=== PATIENT | female | born 2000 | race Two or more races ===

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

== ENCOUNTER 2020-06-24 17:23 | Inpatient (IN) | payer MEDICAID ==
[~2020-06-24] VITALS: Ht 165.1 cm; Wt 60.8 kg
[2020-06-24] MEDS ORDERED: LORazepam 2MG/ML-1ML VIAL IV ONE ×2 (19:00→21:00)
[2020-06-24] MEDS ORDERED: SODIUM CHLORIDE 0.9% 2,000 ML IV ONE (19:00)
[2020-06-24 19:38] LABS: Basophils # (auto) 0 10 ^3/uL (0-0.2); Basophils % (auto) 0.5 % (0.0-2.0); Eosinophils # (auto) 0 10 ^3/uL (0-0.8); Hemoglobin 12.9 g/dL (12.2-16.2); Lymphocytes # (auto) 0.8 10 ^3/uL (0.4-5.4); Lymphocytes % (auto) 9.6 % (10.0-50.0); Mean Corpuscular Hemoglobin 28.7 pg (28.0-32.0); Mean Corpuscular Hgb Conc. 33.1 g/dL (32.0-36.0); Mean Corpuscular Volume 86.6 fL (80.0-100.0); Monocytes # (auto) 0.1 10 ^3/uL (0-1.3); Monocytes % (auto) 1.6 % (0.0-12.0); Neutrophils # (auto) 7.3 10 ^3/uL (1.6-8.6); Neutrophils % (auto) 88.3 % (37.0-80.0); Platelet Count (auto) 296 10^3/uL (140-450); Red Cell Distribution Width 13.6 % (11.8-14.3); White Blood Cell 8.3 10^3/uL (4.4-10.8)
[2020-06-24 19:55] LABS: Albumin 4.2 g/dL (3.4-5.0); Calcium 9.1 mg/dL (8.5-10.1)
[2020-06-24 19:57] LABS: BUN/Creatinine Ratio 17.8
[2020-06-24 20:00] LABS: Bilirubin, Total 0.5 mg/dL (0.2-1.0)
[2020-06-24 20:22] LABS: Salicylate < 1.7 mg/dL (2.8-20.0)
[2020-06-24 20:23] LABS: Acetaminophen < 2.0 ug/mL (10-30)
[2020-06-24 21:24] LABS: Urine Bacteria NONE SEEN /hpf (None Seen); Urine Blood Negative /uL (Negative); Urine Mucus FEW (None Seen); Urine Specific Gravity 1.023 (1.001-1.035); Urine WBC 4 /hpf (0 - 5)
[2020-06-24 21:36] LABS: Amphetamine Screen, Urine NEGATIVE (NEGATIVE); Barbiturate Scree,Urine NEGATIVE (NEGATIVE); Benzodiazephine Screen, Urine NEGATIVE (NEGATIVE); Cannabinoid Screen, Urine POSITIVE (NEGATIVE); Cocaine Screen, Urine NEGATIVE (NEGATIVE); Opiate Scree,Urine NEGATIVE (NEGATIVE); Phencyclidine Screen, Urine NEGATIVE (NEGATIVE)
[2020-06-25] MEDS ORDERED: MORPHINE SULF INJ 2 MG/ML SYRINGE 1ML IV PRN (02:30)
[2020-06-25] MEDS ORDERED: SODIUM CHLORIDE 0.9% 1,000 ML IV ONE (02:30)
[2020-06-25] MEDS ORDERED: NITROGLYCERIN 0.4 MG SL TAB SL PRN (02:30)
[2020-06-25] MEDS ORDERED: LORazepam 2MG/ML-1ML VIAL IV PRN (06:00)
[2020-06-25 06:46] VITALS: BP 121/61
[2020-06-25] MEDS ORDERED: SODIUM CHLORIDE 0.9% 1,000 ML IV SCH (08:00)
--- NOTE | 2020-06-25 08:45 | NUR ---
OPENING SHIFT NOTE: PATIENT ASLEEP RESTING IN BED, EASILY AWOKEN GROGGY. A/OX4 RESPIRATIONS EVEN AND UNLABORED. PATIENT ABLE TO RECALL EVENTS THAT OCCURRED AT HOME, DIZZY, MOM STATED SHE HAD A SEIZURE. PATIENT UPDATED ON PLAN OF CARE. EDUCATED VICE PRESIDENT NETWORK DEVELOPMENT LIGHT AND FALL PRECAUTIONS. WILL CONTINUE TO MONITOR.
[2020-06-25 09:00] VITALS: BP 100/58
--- NOTE | 2020-06-25 09:00 | NUR ---
SEIZURE PRECAUTIONS IN PLACE.
[2020-06-25] MEDS ORDERED: OXYCODONE W/ ACETAMINOPHEN 5/325MG TABLET PO PRN (10:00)
--- NOTE | 2020-06-25 11:11 | NUR ---
CALL FROM MOM: HENRIETTA CALLED, MOTHER, PASSWORD RECEIVED. UPDATED THIS RN ON PATIENT'S MEDICAL HISTORY. PER MOM, DAUGHTER MOVED OUT DUE TO SUBSTANCE ABUSE, REPORTS DAUGHTER "SNORTS 4 LINES PER DAY OF PERCOCET, XANAX, AND NORCO." PATIENT CALLED MOM STATED SHE WAS WITHDRAWING, AND MOM LET HER COME BACK HOME, PATIENT WAS FOUND IN BATH TUB ALOC WHEN MOM CALLED 911. WILL NOTIFY MD OF SUBSTANCE USE AND WITHDRAWAL PRECAUTIONS.
[2020-06-25] MEDS ORDERED: ALPRAZolam 0.25 MG TAB PO PRN (11:45)
--- NOTE | 2020-06-25 12:56 | NUR ---
EEG-ELECTROENCEPHALOGRAM COMPLETED AT BEDSIDE @ 1245.
--- NOTE | 2020-06-25 12:59 | NUR ---
POWER BENDER OPERATOR AT BEDSIDE.
[2020-06-25 13:00] VITALS: BP 110/71
[2020-06-25 16:51] VITALS: BP 110/64
--- NOTE | 2020-06-25 17:15 | NUR ---
MD VALDERRAMA AT BEDSIDE.
--- NOTE | 2020-06-25 17:22 | NUR ---
ORTHOSTATIC VS OBTAINED: SUPINE: 107/69 HR 54, SITTIN/71 HR 61, STANDIN/61 HR 89. PATIENT CLEARED BY NEURO.
--- NOTE | 2020-06-25 18:58 | NUR ---
DISCHARGE: PATIENT GIVEN ALL EDUCATION MATERIALS, VERBALIZED UNDERSTANDING ON INSTRUCTIONS. ADDRESSED CONCERNS. IV REMOVED, MANUAL PRESSURE APPLIED TELE RETURNED TO CARDIO UNIT. PATIENT TAKEN TO PRIVATE AUTO WITH ALL BELONGINGS.
[2020-06-26] MEDS ORDERED: PANTOPRAZOLE 40 MG TAB PO SCH (10:00)
[2020-06-26] MEDS ORDERED: ENOXAPARIN SOD 40 MG/0.4 ML SYRINGE SC SCH (10:00)
--- NOTE | 2020-06-27 09:25 | NUR ---
Weekend salesperson recreational vehicles-I did not receive a page regarding the social service consult for this patient.
== END 2020-06-25 19:04 | disposition home or self-care (01) | DRG 204 ==
LOC: ER 17:23 → EDBD 17:23 → TELE 17:24 → TELE-CENTR 06-25 05:50
PROVIDERS: ADMIT Internal Medicine; ATTEND Internal Medicine
DX: R55 Syncope and collapse (principal); F11.23 Opioid dependence with withdrawal; E86.0 Dehydration; F12.90 Cannabis use, unspecified, uncomplicated; F06.4 Anxiety disorder due to known physiological condition; M53.82 Other specified dorsopathies, cervical region; Z81.8 Family history of other mental and behavioral disorders; Z83.3 Family history of diabetes mellitus
CPT/HCPCS: 36415; 70450; 70551; 72125; 80053; 80307; 80320; 80329; 81001; 84702; 85025; 95819; G0378

== ENCOUNTER 2023-10-28 15:39 | Observation (INO) | payer MEDICAID ==
[~2023-10-28] VITALS: Ht 165.1 cm; Wt 79.5 kg
[2023-10-28 16:17] VITALS: BP 109/67; PULSE 83; RESP 18; O2SAT 98
== END 2023-10-28 19:21 | disposition home or self-care (01) ==
LOC: ER 15:39 → LDRP 16:20 → UNDOADMOB 16:20 → LDRP 16:27 → UNDODISOB 19:21
PROVIDERS: ADMIT Obstetrics & Gynecology; ATTEND Obstetrics & Gynecology
DX: O36.8120 Decreased fetal movements, second trimester, not applicable or unspecified (principal); O46.92 Antepartum hemorrhage, unspecified, second trimester; Z3A.23 23 weeks gestation of pregnancy; Z87.891 Personal history of nicotine dependence
CPT/HCPCS: 76815; 81002; 86850; 86900; 86901; 94760; 99284; G0378